=== PATIENT | male | born 2000 | race Caucasian/White ===

== ENCOUNTER 2020-05-22 13:56 | Emergency (ER) | payer OTHER ==
[~2020-05-22] VITALS: Ht 190.5 cm; Wt 102.1 kg
[2020-05-22 14:22] VITALS: Ht 190.5 cm; Wt 102.1 kg
[2020-05-22 15:47] LABS: CALCIUM 10.5 mg/dL (8.5-10.1); CARBON DIOXIDE 35.3 mmol/L (21-32); CHLORIDE SERUM 103 mmol/L (98-107); CREATININE SERUM 1.4 mg/dL (0.7-1.3); GFR1 > 60 mL/min; GLUCOSE SERUM 105 mg/dL (74-106); POTASSIUM SERUM 4.3 mmol/L (3.5-5.1); SODIUM SERUM 141 mmol/L (136-145)
[2020-05-22 15:48] LABS: LIPASE 76 IU/L (73-393)
[2020-05-22 15:55] LABS: RED CELL DISTRIBUTION WIDTH 13.4 % (12.1-16.2)
[2020-05-22 15:57] LABS: BASOPHIL % 0.7 % (0.2-1.5); PLATELET COUNT 241 x10^3mcL (152-348)
[2020-05-22 16:12] LABS: UA SPECIFIC GRAVITY <=1.005 (1.005-1.035); microscopic required? YES; urine erythrocyte TRACE (NEGATIVE)
[2020-05-22 17:20] VITALS: BP 127/64
== END 2020-05-22 17:20 | disposition home or self-care (01) ==
LOC: ED 13:56
PROVIDERS: Emergency Medicine
DX: S13.4XXA Sprain of ligaments of cervical spine, initial encounter (principal); S09.90XA Unspecified injury of head, initial encounter; S29.9XXA Unspecified injury of thorax, initial encounter; S39.91XA Unspecified injury of abdomen, initial encounter; M54.9 Dorsalgia, unspecified; W18.30XA Fall on same level, unspecified, initial encounter; Y93.89 Activity, other specified; Y92.89 Other specified places as the place of occurrence of the external cause; Y99.8 Other external cause status
CPT/HCPCS: Q9967